=== PATIENT | male | born 1975 | race Caucasian/White ===

== ENCOUNTER 2019-02-17 12:26 | Emergency (ER) | payer OTHER ==
[~2019-02-17] VITALS: Ht 182.9 cm; Wt 81.7 kg
[~2019-02-17 12:26] MED LIST: AMOXICILLIN 50500 MG PO; FLOXIN OTI0.3 %/5 M1 OT; ZPAK PO
[2019-02-17 12:31] VITALS: BP 109/75
[2019-02-17] MEDS ORDERED: KEFLEX500 M1 PO (13:01)
== END 2019-02-17 13:12 | disposition home or self-care (01) ==
LOC: M.ERS 12:26
DX: H60.02 Abscess of left external ear (principal); Z88.0 Allergy status to penicillin

== ENCOUNTER 2019-04-23 17:44 | Emergency (ER) | payer OTHER ==
[~2019-04-23] VITALS: Ht 185.4 cm; Wt 83.9 kg
[~2019-04-23 17:44] MED LIST changes: +KEFLEX500 M1 PO
[2019-04-23] MEDS ORDERED: MEDROLDOSEPACK PO (18:33)
[2019-04-23 18:50] VITALS: BP 120/75
== END 2019-04-23 18:50 | disposition home or self-care (01) ==
LOC: M.ERS 17:44
DX: G62.9 Polyneuropathy, unspecified (principal); Z88.0 Allergy status to penicillin; F17.200 Nicotine dependence, unspecified, uncomplicated

== ENCOUNTER 2020-11-16 14:08 | Inpatient (IN) | payer MEDICARE ==
[~2020-11-16] VITALS: Ht 185.4 cm; Wt 92.5 kg
--- NOTE | ~2020-11-16 | PROC ---
[facility] [address] [place] [address] PROCEDURE REPORT Name: EMI PEOPLES Room: [address] IN M.R.#: [id number] Admission: 11/16/20 Attend Phys: Elio Wilhelm MD Discharge: 11/18/20 Date of : 73 Report #: [id number] THIS REPORT FOR: cc: FAM - No family physician/PCP FAM - No family physician/PCP ~ [facility],Medical Records Staff For GI report, please see the Provation report in Perceptive 7 content. By: [id number] Records Staff [facility] /STACI
[~2020-11-16 14:08] MED LIST changes: +MEDROLDOSEPACK PO
[2020-11-16 14:12] VITALS: BP 117/72
[2020-11-16] MEDS ORDERED: LASIX 40 MG TAB40 MG PO (14:22)
[2020-11-16 14:54] LABS: ABSOLUTE EOSINOPHILS 0.2 thou/uL (0.0-0.7); ABSOLUTE LYMPHOCYTES 0.9 thou/uL (0.8-5.3); ABSOLUTE MONOCYTES 0.4 thou/uL (0.0-1.2); ABSOLUTE NEUTROPHILS 2.4 thou/uL (1.6-8.1); BASOPHILS 1.2 %; EOSINOPHILS 6.1 %; MCH 33.3 pg (26.0-34.0); MCHC 33.5 g/dL (28.0-37.0); MCV 99.6 fL (80.0-100.0); MONOCYTES 9.8 %; MPV 6.7 fl. (7.2-11.1); NUCLEATED RBCS 0 /100WBC; PLATELET COUNT* 86 thou/uL (150-400); POLYS 60.9 %; WBC 3.9 thou/uL (4.0-11.0)
[2020-11-16 15:04] LABS: CALCIUM 7.2 mg/dL (8.5-10.1); CREATININE 0.8 mg/dL (0.6-1.3)
[2020-11-16 15:05] LABS: HEMOGLOBIN 6.7 gm/dL (14.0-18.0)
[2020-11-16 15:06] LABS: APTT 31.1 Seconds (25.0-31.3); INR 1.9; POTASSIUM 2.8 mmol/L (3.5-5.1); PROTIME 19.3 Seconds (9.20-11.50)
[2020-11-16 15:15] LABS: ALBUMIN 1.7 g/dL (3.4-5.0); TOTAL BILIRUBIN 7.5 mg/dL (<0.1-1.0); TOTAL PROTEIN 6.7 g/dL (6.4-8.2)
[2020-11-16 19:44] LABS: URINE BLOOD NEGATIVE (Negative); URINE CLARITY CLEAR; URINE COLOR DARK YELLOW; URINE GLUCOSE-RANDOM TRACE (Negative); URINE KETONES NEGATIVE (Negative); URINE LEUKOCYTES-REFLEX NEGATIVE (Negative); URINE PROTEIN NEGATIVE (Negative)
[2020-11-16 19:46] LABS: ICTOTEST (BILI CONFIRMATORY) Positive (Negative); URINE BILIRUBIN 2+ (Negative); URINE NITRITE-REFLEX POSITIVE (Negative)
[2020-11-16 19:49] VITALS: BP 122/75
[2020-11-16 19:51] LABS: AMP/METHAMP Negative (Negative); BARBITURATES Negative (Negative); BENZODIAZEPINES Negative (Negative); COCAINE Negative (Negative); METHADONE Negative (Negative); OPIATES Negative (Negative); PCP Negative (Negative); THC Negative (Negative)
[2020-11-16 20:01] LABS: BACTERIA-REFLEX 1-9 Few /HPF (None Seen); CASTS None Seen /LPF (None Seen); CRYSTALS None Seen /LPF (None Seen); MUCUS 0-3 Light strn/LPF (None Seen); SQUAMOUS NONE SEEN /LPF (0-3); URINE RBC 0-2 Rare /HPF (0-2); URINE WBC-REFLEX None Seen /HPF (0-5)
[2020-11-16 20:30] VITALS: BP 113/70
[2020-11-17] VITALS (7 sets, daily range): BP systolic 97–139; BP diastolic 56–88
[2020-11-17 03:57] LABS: INR 1.9
[2020-11-17 04:01] LABS: ALBUMIN 1.5 g/dL (3.4-5.0); CALCIUM 7.5 mg/dL (8.5-10.1); CREATININE 0.8 mg/dL (0.6-1.3); MAGNESIUM 1.8 mg/dL (1.8-2.4); TOTAL BILIRUBIN 6.5 mg/dL (<0.1-1.0); TOTAL PROTEIN 5.9 g/dL (6.4-8.2)
[2020-11-17 04:13] LABS: MCH 32.8 pg (26.0-34.0); MCHC 33.6 g/dL (28.0-37.0); MCV 97.5 fL (80.0-100.0); MPV 6.9 fl. (7.2-11.1); RBC 1.98 mil/uL (4.50-6.00); RDW-CV 18.5 % (10.5-14.5)
[2020-11-17 04:28] LABS: HEMOGLOBIN 6.5 gm/dL (14.0-18.0); POTASSIUM 2.8 mmol/L (3.5-5.1)
[2020-11-17 04:29] LABS: HEMATOCRIT 19.3 % (42.0-52.0)
--- NOTE | 2020-11-17 06:29 | NUR ---
PATIENT ARRIVED ON FLOOR FROM ER AT ABOUT 1999. PATIENT ADMSISSION HISTORY AND ASSESSMENT WAS COMPLETED CHARTED. PATIENT CAME UP WITH ONE UNIT OF BLOOD INFUSING FROM ER AND FINISHED WITH NO APPARENT REACTION. HGB THIS MORNING WAS 6.5 [address] WAS 2.8. DR DOBBINS WAS NOTIFIED. ORDERS RECEIVED FOR ANOTHER UNIT OF BLOOD AND POTASSIUM WAS REPLACED PER PROTOCOL ORDER. WILL CONTINUE TO MONITOR.
--- NOTE | 2020-11-17 09:35 | NUR ---
CM SPOKE TO THE PT TO DISCUSS CM ASSESSMENT. PT A&O, AND INDEPENDENT WITH ADL'S. PT USES 0 DME. PT HAS 0 HX OF HH OR SNF. REVIEW OF PT'S CHART INFOMRS THAT THE PT IS UNINSURED. HOWEVER THE PT INFORMS THAT HE HAS MEDICAID, BUT DOES NOT HAVE HIS CARD WITH HIM. MED ASSIST TO VERIFY PT'S INSURANCE STATUS. NO CM D/C PLANNING NEEDS ANTICIPATED. CM WILL REMAIN AVAILABLE TO ASSIST AND FOLLOW NEEDED.
--- NOTE | 2020-11-17 11:29 | EKG ---
[place] [address] ELECTROCARDIOGRAM REPORT Name: JOSELUISEMI MCKENNA Room: [address] IN M.R.#: [id number] Admission: 11/16/20 Attend Phys: Elio Wilhelm, Discharge: Date of : 73 Date of Service: 11/16/20 1416 Report #: [id number] THIS REPORT FOR: //name// [facility] ED Test Date: 2020-11-16 Test Time: 14:16:33 Pat Name: EMI PEOPELS Department: Room: [facility] Gender: M Communication Assistant: OSCAR : 1975 Requested By: Clare Burns Order Number: [id number] MD: Emi Tapia Measurements Intervals [place] Rate: 101 P: 76 WA: 154 QRS: 25 QRSD: 99 T: 48 QT: 383 QTc: 497 Interpretive Statements Sinus tachycardia Borderline T abnormalities, anterior leads Borderline prolonged QT interval No previous ECG available for comparison Electronically Signed On 11-17-2020 11:29:13 CLICKER OPERATOR by Emi Tapia [email or web address] <ELECTRONICALLY SIGNED> By: Emi Tapia MD, [facility] 11/17/20 1129 1416 1416 Emi Tapia MD, [facility] /EPI
[2020-11-17 16:25] LABS: HEMOGLOBIN 7.9 gm/dL (14.0-18.0)
[2020-11-18] VITALS: BP 111/63
[2020-11-18 04:00] VITALS: BP 110/61
[2020-11-18 04:25] LABS: HEMATOCRIT 21.1 % (42.0-52.0); HEMOGLOBIN 7.2 gm/dL (14.0-18.0); MCH 32.4 pg (26.0-34.0); MCV 95.3 fL (80.0-100.0); MPV 6.9 fl. (7.2-11.1); RBC 2.22 mil/uL (4.50-6.00); RDW-CV 18.4 % (10.5-14.5); WBC 4.9 thou/uL (4.0-11.0)
[2020-11-18 04:36] LABS: INR 1.8; PROTIME 18.7 Seconds (9.20-11.50)
[2020-11-18 04:42] LABS: ALBUMIN 1.4 g/dL (3.4-5.0); CREATININE 0.7 mg/dL (0.6-1.3); MAGNESIUM 1.7 mg/dL (1.8-2.4); POTASSIUM 3.7 mmol/L (3.5-5.1); TOTAL BILIRUBIN 6.6 mg/dL (<0.1-1.0); TOTAL PROTEIN 5.6 g/dL (6.4-8.2)
[2020-11-18 06:41] LABS: % SATURATION 47 % (20-39); IRON 70 ug/dL (50-175)
[2020-11-18] MEDS ORDERED: CIPRO500 M1 PO (08:36)
[2020-11-18] MEDS ORDERED: ALDACTONE50 MG PO (08:36)
[2020-11-18] MEDS ORDERED: OMEPRAZOLE40 MG PO (08:36)
--- NOTE | 2020-11-18 11:40 | NUR ---
CM INFORMED DURING PRIME ROUNDING OF THE PLAN OF CARE FOR THE PT. PLAN FOR THE PT TO D/C HOME TODAY WITH SELF-CARE. NO CM D/C PLANNING NEEDS ANTICIPATED. CM WILL REMAIN AVAILABLE TO ASSIST AND FOLLOW NEEDED.
[2020-11-18 11:51] VITALS: BP 110/61
[2020-11-18 11:56] VITALS: BP 111/65
[2020-11-18 12:07] LABS: IgG 1566 mg/dL (603-1613); IgM 118 mg/dL (20-172)
[2020-11-18 12:14] LABS: HEMATOCRIT 22.5 % (42.0-52.0); HEMOGLOBIN 7.6 gm/dL (14.0-18.0)
[2020-11-18 22:06] LABS: HEPATITIS B SURFACE AG Negative (Negative)
[2020-11-19 11:41] LABS: CERULOPLASMIN 13.2 mg/dL (16.0-31.0)
[2020-11-19 16:08] LABS: ANA INTERPRETATION Negative (Negative)
== END 2020-11-18 13:34 | disposition home or self-care (01) | DRG 432 ==
LOC: M.ERS 14:08 → M.TBA-ER 16:26 → M.2W 16:26
PROVIDERS: Internal Medicine Gastroenterology; Nurse Practitioner Family; ADMIT Internal Medicine; ATTEND Internal Medicine
PROC: 30233N1 Transfusion of Nonautologous Red Blood Cells into Peripheral Vein, Percutaneous Approach (ICD-10-PCS; principal; 2020-11-16)
PROC: 0W9G3ZZ Drainage of Peritoneal Cavity, Percutaneous Approach (ICD-10-PCS; 2020-11-17)
PROC: 0DJ08ZZ Inspection of Upper Intestinal Tract, Via Natural or Artificial Opening Endoscopic (ICD-10-PCS; 2020-11-18)
DX: K70.31 Alcoholic cirrhosis of liver with ascites (principal); I85.01 Esophageal varices with bleeding; E43 Unspecified severe protein-calorie malnutrition; K21.01 Gastro-esophageal reflux disease with esophagitis, with bleeding; D61.818 Other pancytopenia; K56.7 Ileus, unspecified; E87.2 Acidosis; N39.0 Urinary tract infection, site not specified; K76.6 Portal hypertension; K70.40 Alcoholic hepatic failure without coma; K22.70 Barrett's esophagus without dysplasia; Z20.822 Contact with and (suspected) exposure to COVID-19; G62.9 Polyneuropathy, unspecified; F12.90 Cannabis use, unspecified, uncomplicated; D50.0 Iron deficiency anemia secondary to blood loss (chronic); E87.6 Hypokalemia; F10.20 Alcohol dependence, uncomplicated; R53.81 Other malaise; I83.90 Asymptomatic varicose veins of unspecified lower extremity; K31.89 Other diseases of stomach and duodenum; Z88.0 Allergy status to penicillin; Z79.899 Other long term (current) drug therapy